=== PATIENT | female | born 1995 | race Native Hawaiian/Other Pacific Islander ===

== ENCOUNTER 2022-08-19 12:55 | Outpatient (CLI) | payer OTHER | END 2022-08-19 20:12 | disposition home or self-care (01) | LOC: RAD 12:55 | PROVIDERS: ATTEND Nurse Practitioner Family | DX: R10.31 Right lower quadrant pain (principal); R10.32 Left lower quadrant pain; R10.33 Periumbilical pain; R11.2 Nausea with vomiting, unspecified; R19.7 Diarrhea, unspecified ==

== ENCOUNTER 2022-09-06 08:58 | Outpatient (CLI) | payer OTHER | END 2022-09-06 20:31 | disposition home or self-care (01) | LOC: CT 08:58 | PROVIDERS: ATTEND Nurse Practitioner Family | DX: R10.31 Right lower quadrant pain (principal); R10.32 Left lower quadrant pain; R10.33 Periumbilical pain; R11.2 Nausea with vomiting, unspecified; R19.7 Diarrhea, unspecified ==

== ENCOUNTER 2022-10-15 10:03 | Outpatient (CLI) | payer OTHER | END 2022-10-15 20:12 | disposition home or self-care (01) | LOC: LABW 10:03 | PROVIDERS: ATTEND Internal Medicine Gastroenterology | DX: K59.1 Functional diarrhea (principal) | CPT/HCPCS: 82272; 82656; 82705; 83630; 87015; 87045; 87324; 87328; 87329; 87449; 87899 ==

== ENCOUNTER 2023-03-07 07:44 | Emergency (ER) | payer OTHER ==
[~2023-03-07] VITALS: Ht 160 cm; Wt 76.2 kg
[2023-03-07 07:44] VITALS: TEMP 98
[2023-03-07 08:14] LABS: POTASSIUM 3.8 mmol/L (3.6-5.2)
[2023-03-07 08:17] LABS: PLATELET COUNT 292 K/uL (152-353)
[2023-03-07 09:27] VITALS: BP 133/94
== END 2023-03-07 09:33 | disposition home or self-care (01) ==
LOC: ED 07:44
PROVIDERS: Internal Medicine
DX: R55 Syncope and collapse (principal); F12.10 Cannabis abuse, uncomplicated
CPT/HCPCS: 36415; 80053; 80307; 81002; 81025; 84443; 85027; 93005; 99284; J2405